=== PATIENT | female | born 1985 | race African-American/Black ===

== ENCOUNTER 2017-06-02 23:04 | Emergency (ER) | payer OTHER ==
[~2017-06-02] VITALS: Ht 154.9 cm; Wt 67.1 kg
[~2017-06-02 23:04] MED LIST: ACCUNEB SO1.25 MG/1 INH; FLAGYL500 MG PO; MACROBID 100 M100 M1 PO; PROGESTERONE100 MG PO; TRINATE TABLET1 TAB PO; VITAFOL-OB+DHA1 EACH PO
[2017-06-02 23:06] VITALS: BP 112/72
[2017-06-02] MEDS ORDERED: VENTOLIN HFA 1818 GM INH (23:18)
== END 2017-06-02 23:42 | disposition home or self-care (01) ==
LOC: ER 23:04
DX: O26.893 Other specified pregnancy related conditions, third trimester (principal); Z3A.35 35 weeks gestation of pregnancy

== ENCOUNTER 2020-02-26 07:24 | Emergency (ER) | payer OTHER ==
[~2020-02-26] VITALS: Ht 154.9 cm; Wt 58.1 kg
[~2020-02-26 07:24] MED LIST changes: +VENTOLIN HFA 1818 GM INH
[2020-02-26] MEDS ORDERED: PREDNISONE 20 M20 MG PO (08:55)
[2020-02-26] MEDS ORDERED: SYMBICORT80 MCG/4.1 INH (08:55)
[2020-02-26] MEDS ORDERED: ALBUTEROL2.5 MG/0.5 INH (08:55)
[2020-02-26] MEDS ORDERED: PROAIR HFA8.5 GM INH (08:55)
[2020-02-26 09:06] VITALS: BP 110/68
== END 2020-02-26 09:05 | disposition home or self-care (01) ==
LOC: ER 07:24
DX: J45.901 Unspecified asthma with (acute) exacerbation (principal); Z79.899 Other long term (current) drug therapy